=== PATIENT | male | born 1960 | race American Indian/Alaskan Native ===

== ENCOUNTER 2020-09-18 14:47 | Emergency (ER) | payer MEDICARE ==
[2020-09-18 16:44] VITALS: BP 143/89
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
== END 2020-09-18 19:00 | disposition home or self-care (01) ==
LOC: ED 14:47
DX: M25.531 Pain in right wrist (principal); Z98.890 Other specified postprocedural states; V49.59XA Passenger injured in collision with other motor vehicles in traffic accident, initial encounter; Y92.410 Unspecified street and highway as the place of occurrence of the external cause; Y93.89 Activity, other specified; Y99.8 Other external cause status
CPT/HCPCS: 99283